=== PATIENT | male | born 1980 | race Caucasian/White ===

== ENCOUNTER → 2017-10-21 | Outpatient (REF) | payer OTHER ==
[2017-10-21 19:31] LABS: APPEARANCE, URINE CLEAR (CLEAR); BACTERIA, URINE AUTO NEGATIVE (NEGATIVE); BILIRUBIN, URINE AUTO NEGATIVE (NEGATIVE); BLOOD, URINE BLOOD NEGATIVE (NEGATIVE); CALCIUM OXALATE CRYSTALS SMALL; COLOR, URINE YELLOW (YELLOW); GLUCOSE, URINE (UA) AUTO NEGATIVE (NEGATIVE); KETONE, URINE AUTO NEGATIVE (NEGATIVE); LEUKOCYTE ESTERASE, URINE AUTO NEGATIVE (NEGATIVE); MUCUS, URINE SMALL (NEGATIVE); NITRITE, URINE AUTO NEGATIVE (NEGATIVE); PROTEIN, URINE AUTO NEGATIVE (NEGATIVE); RBC, URINE AUTO 1 /HPF (0-3); SPECIFIC GRAVITY URINE AUTO 1.028 (1.002-1.035); SQUAMOUS EPITHELIAL CELL UR AU 0 /HPF (0-6); UROBILINOGEN, URINE AUTO 0.2 mg/dL (0.0-2.0); WBC, URINE AUTO 1 /HPF (0-3)
== END ==
LOC: M SMT 17:38
DX: R30.0 Dysuria (principal)

== ENCOUNTER → 2018-03-31 | Outpatient (CLI) | payer OTHER ==
--- NOTE | 2018-03-31 16:02 | REP ---
CT IACS WITHOUT CONTRAST: HISTORY: Bilateral conductive hearing loss. The right internal auditory canal, cochlea, vestibule, and semicircular canals are normal in appearance. There is no carotid canal or jugular bulb dehiscence. Soft tissue density is present in the right epitympanum and right mastoid antrum. The soft tissue density almost completely surrounds the ossicles. Soft tissue density is present in Prussak's space. The ossicles are normal in configuration and position. The scutum is intact. There are areas of dehiscence or erosion in the right tegmen. There is almost complete opacification of the right mastoid air cells. The left internal auditory canal, cochlea, vestibule and semi-circular canals are normal in appearance. There is no carotid canal or jugular bulb dehiscence. The ossicles are normal in configuration and position. The scutum is intact. There are areas of dehiscence in the left tegmen. The left middle ear cavity and mastoid air cells are clear. The nasopharynx is normal in appearance. The visualized sinuses are clear. IMPRESSION: There is soft tissue density in the right epitympanum and right mastoid antrum. There is complete opacification of the right mastoid air cells. There are areas of dehiscence or erosion in the right tegmen. These findings are suspicious for cholesteatoma. Electronically Signed by Alcides Rangel MD 03/31/2018 04:08 P
== END ==
LOC: M RAD 14:22
PROVIDERS: ATTEND Otolaryngology
DX: H90.0 Conductive hearing loss, bilateral (principal); H74.91 Unspecified disorder of right middle ear and mastoid